=== PATIENT | male | born 1995 | race Two or more races ===

== ENCOUNTER 2021-07-26 14:54 | Emergency (ER) | payer OTHER, SELFPAY ==
--- NOTE | ~2021-07-26 | XR_ITS ---
EXAMINATION: XR FINGER, RIGHT CLINICAL INFORMATION: Question foreign body COMPARISON: None TECHNIQUE: Frontal lateral second finger and AP hand FINDINGS: There is a triangular radiodense object embedded in the soft tissue dorsal to the head of the second proximal phalanx may correlate with the foreign body. No fracture. XR/XR finger RT min 2V IMPRESSION: 2 mm radiodense object embedded in the soft tissue at the level of the dorsal aspect of the head of the proximal phalanx compatible with foreign body. No fracture.
[2021-07-26 16:29] VITALS: BP 123/60; PULSE 74; RESP 18; TEMP 36.6; O2SAT 100
[2021-07-26 16:31] VITALS: BMI 27.2
--- NOTE | 2021-07-26 17:35 | ED_ITS ---
HPI - Wound/Laceration General Chief Complaint: Wound/Laceration Stated Complaint: wc finger lac Time Seen by Provider: 07/26/21 17:35 Source: patient Mode of arrival: ambulatory Limitations: no limitations History of Present Illness HPI narrative: 25-year-old male presents with right index finger laceration with suspected foreign body. Injury occurred while at work trying to replace glass. Tdap updated approximately 3 months ago. Bleeding is controlled at this time. Onset (ago): hour(s) (Within the hour of arrival) Extremity Location: right: hand Place: work Patient tetanus UTD: Yes Context: accidental Associated symptoms: suspect foreign body present and other (Decreased extension) Treatments prior to arrival: bandage Related Data Previous Rx's Medication Instructions Recorded amoxicillin 875 mg-potassium 1 tab PO Q12H 10 Days #20 tab 07/26/21 clavulanate 125 mg tablet (Augmentin) Allergies Allergy/AdvReac Type Severity Reaction Status Date / Time No Known Allergies Allergy Verified 07/26/21 16:30 Review of Systems Review of Systems: Constitutional: No Fever, No Chills ENT/Mouth: No Ear Pain, No Hoarseness, No sore throat Eyes: No Eye Pain, No Swelling, No Redness, No Foreign Body Cardiovascular: No Chest Pain, No SOB Respiratory: No Cough, No Dyspnea Gastrointestinal: No Nausea, No Vomiting, No Diarrhea, No abdominal Pain Genitourinary: No Dysuria, No Hematuria Musculoskeletal: positive right index finger pain, No Myalgias, No Joint Swelling Skin: Positive right index finger laceration, No rash Neuro: No Weakness, No Numbness, No Paresthesias, No Loss of Consciousness, No Dizziness, No Headache Psych: No Anxiety/Panic, No Depression Heme/Lymph: no easy bruising, no Lymphadenopathy Endocrine: No Polyuria, No Polydipsia Yes all other systems are reviewed and are negative [facility] Past Medical History Attestation statement: The following information was validated with the patient. Source: old records reviewed Social History Social History Advance Directives: No Advance Directives Information Provided: No Physical Exam Vital Signs: Vital Signs: Last Vital Signs Temp 97.9 F 07/26/21 16:29 Pulse 74 07/26/21 16:29 Resp 18 07/26/21 16:29 BP 123/60 07/26/21 16:29 Pulse Ox 100 07/26/21 16:29 BMI result Body Mass Index 27.2 Appearance: Alert. Oriented X3. No acute distress. Eyes: Pupils equal, round and reactive to light. ENT: Pharynx normal. Neck: Normal inspection. Neck supple. CVS: Normal heart rate and rhythm. Pulses normal. Respiratory: No respiratory distress. Breath sounds normal. Abdomen: Soft and nontender. Skin: Skin warm and dry. Normal skin color. Normal skin turgor. Extremities: Decreased extension to the right index finger, full flexion, brisk capillary refill, neurovascularly intact. 4 cm irregular laceration over the PIP. Neuro: No motor deficit. No sensory deficit. Cranial nerves 2-12 intact. Course Course Course Narrative: 25-year-old male presents with laceration to the right dorsal aspect of the index finger. X-rays indicate suspected foreign body. Tdap vaccine was updated approximately 3 months ago. Prepped and draped in sterile fashion, irrigated with 2 L of sterile saline, Betadine cleanse. Wound investigated how however was unable to obtain the foreign body on x-ray. Laceration repaired with 5 loose sutures. 6:31 p.m. brisk capillary refill continues, decreased range of motion with extension to the right index finger. Neurovascularly intact. Plan of care is for patient to follow-up with Dr. De La Cruz, hand surgeon. Patient does understand that he must take antibiotics, if he finds indication of infection that he must return immediately as he does have a foreign body. Thank you for choosing this emergency department for evaluation. Please follow-up with primary care physician as needed. Return to the emergency department for any new, concerning, or worsening symptoms. Consultations Consultation #1: Jono Time: 18:27 MDM - Wound/Laceration MDM Narrative Medical decision making narrative: Foreign body Differential Diagnosis Differential diagnosis: Likely laceration Medical Records Attestation: I reviewed the patient's medical records. Imaging Data X-ray finger: Attestation: I personally reviewed and interpreted this imaging study as follows: Radiologist's impression: EXAMINATION: XR FINGER, RIGHT CLINICAL INFORMATION: Question foreign body? COMPARISON: None? TECHNIQUE: Frontal lateral second finger and AP hand FINDINGS: There is a triangular radiodense object embedded in the soft tissue dorsal to the head of the second proximal phalanx may correlate with the foreign body. No fracture. XR/XR finger RT min 2V IMPRESSION: 2 mm radiodense object embedded in the soft tissue at the level of the dorsal aspect of the head of the proximal phalanx compatible with foreign body. ? No fracture. Procedures Laceration Laceration 1: Site: hand Side (If applicable): right Size (cm): 4 Description: flap and irregular Depth: simple, single layer, involves muscle layer and involves tendon Local Anesthetic: lidocaine 2% Amount of anesthesia used (mL): 4 Pre-repair: wound explored and irrigated extensively Skin layer closed with: nylon Size (cm): 4-0 Number of sutures: 5 Technique: simple, interrupted Nerve Block Nerve Block 1: Time out performed: Yes Local Anesthetic: lidocaine 2% Amount of anesthesia used (mL): 4 Side: right Nerve Blocks: digital Procedure Successful: Yes Patient Tolerated Procedure: well and no complications Discharge Plan Discharge Clinical Impression: Laceration, Extensor tendon disruption, Foreign body (FB) in soft tissue Patient Disposition: Home, Self-Care Instructions: Soft Tissue Foreign Body (ED), Finger Laceration (ED), Tendon Laceration (ED) Additional Instructions: You were evaluated for laceration from glass. X-rays indicated foreign body still in the finger, I was unable to remove that. You also have a extensor tendon injury to the right index finger. Please follow-up with Dr. De La Cruz, hand surgeon. Please call the office on Thursday for an appointment. You will most likely require surgery for this injury. Please take Augmentin twice a day for the next 10 days. If you notice any signs or symptoms indicating infection, loss of sensation to the finger, fevers or chills please return to the emergency department immediately for evaluation Thank you for choosing this emergency department for evaluation. Please follow-up with primary care physician as needed. Return to the emergency department for any new, concerning, or worsening symptoms. Prescriptions: New amoxicillin-pot clavulanate [Augmentin] 875-125 mg tablet 1 tab PO Q12H 10 Days Qty: 20 RF: 0 Referrals: Yulisa De La Cruz MD [Physician] - 2 days (Call on Thursday for foreign body and extensor tendon injury to the right index finger) Stand Alone Forms: Work/School Release
[2021-07-26] MEDS: Amoxicillin/Potassium Clav 875 MG TABLET PO (18:50)
== END 2021-07-26 19:08 | disposition home or self-care (01) ==
PROVIDERS: Emergency Provider Emergency Medicine Emergency Medical Services
DX: S61.220A Laceration with foreign body of right index finger without damage to nail, initial encounter (principal); S66.320A Laceration of extensor muscle, fascia and tendon of right index finger at wrist and hand level, initial encounter; W25.XXXA Contact with sharp glass, initial encounter; Y93.89 Activity, other specified; Y92.89 Other specified places as the place of occurrence of the external cause; Y99.0 Civilian activity done for income or pay
CPT/HCPCS: 12042; 73140; 99283; 99284

== ENCOUNTER 2021-07-30 10:54 | Outpatient (REF) | payer OTHER, SELFPAY ==
--- NOTE | ~2021-07-30 | XR_ITS ---
EXAMINATION: XR HAND, RIGHT CLINICAL INFORMATION: Pain in hand. COMPARISON: 07/26/2021 TECHNIQUE: PA, lateral, and oblique views of the right hand. FINDINGS: There is swelling along the radiopalmar side of the second digit centered at the PIP level. The previously seen triangular radiopaque foreign body is no longer seen. There is no soft tissue gas or osseous erosion. No fracture. XR/XR hand RT min 3V IMPRESSION: Soft tissue swelling along the second digit. No visible radiopaque foreign body.
== END 2021-07-30 10:55 | disposition home or self-care (01) ==
LOC: HO.HOSX 10:54
PROVIDERS: Visit Provider Physician Assistant
DX: M79.643 Pain in unspecified hand (principal); S61.220A Laceration with foreign body of right index finger without damage to nail, initial encounter; S66.821A Laceration of other specified muscles, fascia and tendons at wrist and hand level, right hand, initial encounter; S64.490A Injury of digital nerve of right index finger, initial encounter; W25.XXXA Contact with sharp glass, initial encounter; W45.8XXA Other foreign body or object entering through skin, initial encounter; Y93.89 Activity, other specified; Y92.69 Other specified industrial and construction area as the place of occurrence of the external cause; Y99.0 Civilian activity done for income or pay
CPT/HCPCS: 73130

== ENCOUNTER 2021-08-05 09:28 | Day surgery (SDC) | payer OTHER, SELFPAY ==
[2021-08-05] VITALS (7 sets, daily range): BP systolic 101–148; BP diastolic 56–91; PULSE 82–107; RESP 16–18; TEMP 36.2–37.6; O2SAT 97–100; BMI 27.3
--- NOTE | ~2021-08-05 | FL_ITS ---
EXAMINATION: XR FLUOROSCOPY WITH IMAGES CLINICAL INFORMATION: Index finger reconstruction COMPARISON: Radiographs right hand and finger 07/30/2021, 07/26/2021 TECHNIQUE: Fluoroscopy performed by Dr. Yulisa De La Cruz. Fluoroscopy time: 21 seconds. DAP: 9747 uGycm2 Images: 1 FINDINGS: There is likely some focal gas from procedure lateral soft tissue index finger. There is no fracture or dislocation or destructive process. Linear metallic structure is seen adjacent to distal aspect middle phalanx on medial side extending beyond field of view. FL/FL guidance in OR IMPRESSION: Fluoroscopy for orthopedic procedure.
--- NOTE | 2021-08-05 10:58 | HO.ANESPROP2 ---
HPI - Anesthesia Eval Consult details Narrative: 25 M for Index finger reconstruction and foreign body removal right . PMFSH Active Problems Active Problems: All Active Problems (Updated 07/30/21 @ 19:05 by Cynthia Cueva PA-C) Digital nerve laceration, finger (Acute) Laceration of right hand involving extensor tendon (Acute) Foreign body (FB) in soft tissue (Acute) Family History Family history of problems with anesthesia: No Surgical History History of Problems with Anesthesia: Unobtainable (No history of anesthesia ) Social History Social History (Updated 07/30/21 @ 11:09 by Ángel La) Patient Tobacco Use Status: Never used Tobacco Use of substances other than those prescribed or required for medical reasons: Yes Substance Use Frequency: Occasionally Are you DNR?: No Advance Directives: No Advance Directives Information Provided: Yes Current occupational status: employed Current occupation: rt handed Meds Allergies Allergy/AdvReac Type Severity Reaction Status Date / Time No Known Allergies Allergy Verified 07/30/21 11:09 Exam Exam Date and Time: August 05, 2021 1058 Height,Weight and Vital Signs: Height 5 ft 7 in Weight 79.379 kg Last Vital Signs Temp 99.6 F 08/05/21 09:44 Pulse 107 H 08/05/21 09:44 Resp 16 08/05/21 09:44 BP 148/91 H 08/05/21 09:44 Pulse Ox 99 08/05/21 09:44 Airway Mallampati Class: II TM Dist: >3cm Neck ROM: Full Loose/Missing/Broken Teeth: Yes (Chipped front ) Heart: rrr Lungs: bl breath sounds Assessment and Plan Final Anesthetic Review Family History of Problems with Anesthesia: No History of Problems with Anesthesia: Unobtainable (No history of anesthesia ) NPO: Yes ASA Class: I Patient Risk: Intermediate Procedure Risk: Intermediate Anesthetic Plan Anesthetic Plan: GA Disposition: Standard PACU
--- NOTE | 2021-08-05 13:17 | MHC.SHP ---
Pre-Procedural Eval Section A Date of Service: 08/05/21 The patient is an INPATIENT: No Changes since office visit: No Cold of Flu in the past 2 weeks, No New Medical Problems, No Changes in Medication and No Patient answered all questions The History & Physical has been completed within 30 days and I have reviewed it.: Yes Section B Chief Complaint: finger laceration Allergies: Allergies Allergy/AdvReac Type Severity Reaction Status Date / Time No Known Allergies Allergy Verified 07/30/21 11:09 Plan I have reviewed the history and physical and performed a pertinent physical examination on my patient. No changes have occurred unless specified.
--- NOTE | 2021-08-05 13:17 | W.PM.OPN ---
Operative Note Operative Note Date of Service: 08/05/21 Narrative: Operative Note Narrative: Preop diagnosis: 1. Right index finger laceration, possible extensor tendon laceration, possible open PIP joint, possible foreign body, possible radial digital nerve laceration. Postop diagnosis: 1. Right index finger laceration with open PIP joint 2. Right index finger laceration of and the ulnar lateral band. Procedure: 1. Right index finger I&D and I&D of PIP joint 2. Right index finger repair of the extensor digitorum communis tendon central slip, 3. and repair of the ulnar lateral band tendon 4. Right index finger radial digital nerve neurolysis Surgeon: Yulisa De La Cruz MD Anesthesia: General Findings: right index finger dorsal PIP level laceration extended through the central slip of the extensor tendon as well as the ulnar lateral band and into the dorsal aspect of the PIP joint. No foreign body was found, or found on fluoroscopic images. The radial digital nerve was found to be intact. Implants: None Tourniquet time: 51 minutes EBL: 5.0 ml Specimen: none Drains: None Complications: None Disposition: Brought to the recovery room in stable condition Plan: Follow-up in 10-14 days for wound check, suture removal and for placement in a short-arm finger spica cast holding the right index and middle fingers in MCP flexion and PIP extension. Indications: The patient is a [age] year old young man with a laceration to the dorsal aspect of the right index finger at the PIP joint level from a piece of glass From a broken windshield. . The risks and benefits of operative treatment, including but not limited to risk of damage to blood vessels, nerves, tendons, infection, recurrence, persistent pain or numbness, incomplete resolution of preoperative symptoms, or need for further surgery were discussed with the patient and they wished to proceed with surgery. Procedure: Once consent was obtained patient was brought back to the operating suite and placed in the operating table in a supine position. . Perioperative antibiotics and anesthesia was administered by the anesthesia team. A tourniquet was applied to the proximal aspect of the right upper extremity and the limb was prepped and draped in a standard surgical fashion. The limb was elevated exsanguinated with Esmarch bandage and the tourniquet inflated to 250 mm of mercury for a total tourniquet time of 51 minutes. a pair of tenotomy scissors was used to open up the dorsal flap of tissue over the PIP joint of the right index finger. This then allowed us to follow the entrance wound which clearly passed through the central slip of the extensor tendon, also lacerating the ulnar lateral band tendon and extending down into the dorsal aspect of the PIP joint. The radial lateral band was intact. I sharply debrided some devitalized tissue from the dorsal flap tissues using a 15. Blade and iris scissors. I evaluated the wound for a possible piece of glass that was seen on the original radiographic images when he was in the emergency department. No piece of glass was found. Multiple fluoroscopic images were also obtained intraoperatively to look for this piece of glass, but no glass was found. I suspect it was removed or washed out when the wound was washed out in the emergency department. An Angiocath was used to copiously irrigate the PIP joint. Upon inspection of the joint I noted that he had a chondral injury to the dorsal articular cartilage at the distal end of the proximal phalanx. The chondral defect measured approximately 4 mm in length by perhaps 2-3 mm in width and again was located more on the dorsal articular surface pro. The wound was copiously irrigated with normal saline. I then repaired the central slip of the extensor tendon using some 4-0 Ethibond suture. I then repaired the ulnar lateral bands tendon using some 4-0 Ethibond and some 4-0 Prolene suture. I then turned my attention to our neurolysis to further evaluate the radial digital nerve. A Arvind type incision was made over the volar aspect of the proximal and middle phalanxes of the right index finger. I then dissected down to the level of the flexor tendon sheath using tenotomy scissors. I then performed a neurolysis freeing up the soft tissue from about the radial digital nerve both proximal and distal to the PIP joint. This was done using tenotomy and iris scissors. In doing so, it appear the radial digital nerve was in continuity. At this point the tourniquet was deflated and hemostasis obtained with a brief period of local pressure . The Wounds were again copiously irrigated with normal saline. The skin edges were reapproximated with 5-0 nylon suture. a digital block was performed using some 0.5% plain Marcaine for postop pain control. A sterile dressing was applied, as well as a volar splint extending to the fingertips with the MCP joints in flexion and the PIP joints in slight flexion. The patient appears to have tolerated the procedure well and with no complications. All digits were well vascularized conclusion of the case.
== END 2021-08-05 14:10 | disposition home or self-care (01) ==
PROVIDERS: Visit Provider Orthopaedic Surgery
PROC: (CPT 26426; principal; 2021-08-05 11:10)
DX: S61.210A Laceration without foreign body of right index finger without damage to nail, initial encounter (principal); S63.690A Other sprain of right index finger, initial encounter; W25.XXXA Contact with sharp glass, initial encounter; Y93.89 Activity, other specified; Y92.89 Other specified places as the place of occurrence of the external cause; Y99.0 Civilian activity done for income or pay
CPT/HCPCS: 26426; 26418; 64702; 64708; J0690; J1100; J2250; J2370; J2405; J3010

== ENCOUNTER → 2021-08-20 10:00 | Outpatient (BNVA) | payer OTHER, SELFPAY | PROVIDERS: Visit Provider Orthopaedic Surgery | DX: S61.411D Laceration without foreign body of right hand, subsequent encounter (principal); S66.821D Laceration of other specified muscles, fascia and tendons at wrist and hand level, right hand, subsequent encounter | CPT/HCPCS: 99212 ==

== ENCOUNTER → 2021-09-17 11:26 | Outpatient (BNVA) | payer OTHER, SELFPAY | PROVIDERS: Visit Provider Orthopaedic Surgery | DX: S61.411D Laceration without foreign body of right hand, subsequent encounter (principal); S66.821D Laceration of other specified muscles, fascia and tendons at wrist and hand level, right hand, subsequent encounter; M79.5 Residual foreign body in soft tissue | CPT/HCPCS: 99212 ==

== ENCOUNTER 2021-10-17 13:00 | Outpatient (RCR) | payer OTHER, SELFPAY ==
--- NOTE | 2021-10-03 15:07 | MHC.OT.OEV ---
[address] [phone] F: [phone] Occupational Therapy Evaluation Diagnosis: Right hand laceration, post-op I&D w/ EDC central slip and ulnar lateral band repair Date of Onset: 07/26/21 Date of Surgery: 08/05/21 Attending Provider: Dr De La Cruz Prescribed Treatment: Eval and Treat MD Follow Up Appointment: 10/16/21 History of Current Condition: 25 yo male was installing a glass windshield when tool broke and hand slipped across the glass, resulting in right index finger laceration over dorsal PIP. He was seen in ED for right hand laceration and referred to [facility]. He is now post-op I&D w/ EDC central slip and ulnar lateral band repair 08/05/[address] De La Cruz. He has since had cast removed and cleared for OT to progress range and activity. Significant Medical History: None known Precautions/Contraindications: Patient Goals: Get full AROM. 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[employer] Living Situation, Family and/or Social Support: Lives w/ fiance Current Level of Function and Occupation Self Care, Employment, Leisure: Currently out of work, difficulty working w/ auto tools, opening containers Sleep: No issues Driving: WFL, some discomfort w/ stardand transmission Pain Assessment Pain Score: 0 Pain Location and Description: Pain free at rest Soreness/muscle ache w/ heaviner use Aggravating Factors: Gripping, pressure Alleviating Factors: None used Skin and Soft Tissue Assessment Comments: Well healed surgical scar on volar right index PIP and dorsal PIP; digit flexed position of comfort Nerve assessment Ulnar Nerve: WFL Median Nerve: WFL Radial Nerve: WFL Sensory Assessment Comments: Perry Ralph 2.83 B/L index volar and dorsal aspect Pt denies sensory changes index Notes occasional numbness/tingling in right small and ring fingers Edema Assessment Comments: PIP R 7.3 L 6.7 Dexterity Assessment Comments: Functional Dexterity Test R 23 sec L 24 sec AROM(PROM) Strength Cervical Cervical Flexion: Cervical Extension: Cervical Lateral Flexion: Cervical Rotation: Comments: WFL Shoulder Flexion: Extension: Abduction: Internal Rotation: External Rotation: Comments: WFL Flexion: Extension: Abduction: Internal Rotation: External Rotation: Comments: Elbow Flexion: Extension: Pronation: Supination: Comments: WFL Flexion: Extension: Pronation: Supination: Comments: Wrist Flexion: R 60 L 62 Extension: R 60 L 72 Ulnar Deviation: Radial Deviation: Comments: Flexion: Extension: Ulnar Deviation: Radial Deviation: Comments: Thumb Thumb CMC Flexion: Thumb MCP Flexion: Thumb IP Flexion: Radial Abduction: Palmar Abduction: [place] ([place]andji 0-10): Comments: WFL Digits Index MCP: R 0/63 PIP: R 30(16)/78 DIP: R 0/32 Long MCP: PIP: DIP: Ring MCP: PIP: DIP: Small MCP: PIP: DIP: Comments: Soft end range feel w/ passive PIP flex Pt w/ index extensor lag, correctable to 16 degrees and then w/ joint stiffness Gross Grasp: R 85lb L 135lb Lateral Pinch: Two-Point Pinch: Three-Jaw Andry: Comments: Patient Education Primary Language: Serbian 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 Patient demonstrates Patient verbalizes Barriers to Learning: None Readiness for Learning: Accepting Who was educated? Patient Comments: Plan of Care Assessment: 25 yo male about 8 weeks post-op right D2 EDC repair at central slip w/ ulnar lateral band repair and has been cleared for OT to progress passive and active ROM. 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 Currently, pt displays decreased right D2 flexion and extension and decreased right patient consumer marketer strength. Incision well-healed on volar and dorsal D2 PIP, with some adhesions and tightness. Mild edema in the right PIPj. Pt to cont OT services to improve AROM and patient consumer marketer strength, while reducing edema for functional tasks in order to promote best ability to function. STG Duration: 2 weeks Short Term Goals: Ind with HEP Ind with scar management R PIP ext <15 R PIP flex >85 R patient consumer marketer strength > 100lbs LTG Duration: 4 weeks Jail Goals: PIP ext <10 PIP flex >95 R patient consumer marketer strength >120lbs Pt to report ease with opening jars Pt to report ease with using hand tools QuickDASH <15 Frequency and Duration: The patient will be seen 2x/week for 4 weeks Treatment Plan: Therapeutic Exercise Therapeutic Activity Home Exercise Program Splinting Patient Education Desensitization/Sensory Re-ed Edema Control ADL Training Ultrasound Paraffin Fluidotherapy MHP Cold Packs Joint Mobilization Soft Tissue Mobilization Kinesiotaping Electronically Signed By: Nicky Peacock OT/s Reviewed/agree with student documentation: Yes Therapist: Nanda Baird OTR/L CHT Please sign and return to therapist, Thank you for your referral.
--- NOTE | 2021-10-14 13:51 | MHC.OT.OP ---
[address] [phone] F: [phone] Occupational Therapy Progress Note Diagnosis: Right hand laceration, post-op I&D w/ EDC central slip and ulnar lateral band repair Date of Surgery: 08/05/21 Date of Evaluation: 10/03/21 Treatments to Date: 2 No Shows to Date: 2 Subjective: Things are actually getting easier to do Pain Score: 0 Pain Location: right index finger Objective Measures: Right index PIP 14(8)/86 Status: Progressing Assessment: Shine is now 10 weeks post-op central slip and lateral band repair. He missed one week of therapy, but has been doing well w/ HEP. He demos good active extension and slightly less than full active composite flexion. He has mild boutonniere deformity with slight PIP flexion contracture/extensor lag and DIP slight hyperextension/tightness. Overall range improving from initial evaluation, continues to be pain free and has good participation in daily activities. Short Term Goals: Ind with HEP (met) Ind with scar management (met) R PIP ext <15 (met) R PIP flex >85 (met) R media production operator strength > 100lbs Care Home Goals: PIP ext <10 PIP flex >95 R media production operator strength >120lbs Pt to report ease with opening jars Pt to report ease with using hand tools QuickDASH <15 Frequency and Duration: The patient will be seen 2x/week for 2 weeks Treatment Plan: Therapeutic Exercise Therapeutic Activity Home Exercise Program Splinting Patient Education Desensitization/Sensory Re-ed Edema Control ADL Training Ultrasound Paraffin Fluidotherapy MHP Cold Packs Joint Mobilization Soft Tissue Mobilization Kinesiotaping Electronically Signed By: Nicky Peacock OT/s Reviewed/agree with student documentation: Yes Therapist: Nanda Baird, OTR/L CHT
--- NOTE | 2021-10-24 14:23 | MHC.OT.DC ---
[address] [phone] F: [phone] Occupational Therapy Discharge Note Provider: Dr De La Cruz Diagnosis: Right hand laceration, post-op I&D w/ EDC central slip and ulnar lateral band repair Date of Surgery: 08/05/21 Date of Evaluation: 10/03/21 Date of Discharge: 10/24/21 Treatments to Date: 3 No Shows to Date: 4 Discharge Status: Improved Function Independent with HEP Visit Non-compliance Discharge Summary: Shine is now 10 weeks post-op and demos good active extension w/ slight lag. Overall range improving from initial evaluation, continues to be pain free and has good participation in daily activities. Reports he has been wearing compression digi-sleeve at nighttime and LMB extension splint for low load extension stretch. He has missed four therapy visits and at this time requires discharge from therapy services due to attendance policy. He is Ind w/ his home exercise program and has good understanding of edema, pain and scar management techniques, I anticipate full functional return. Electronically Signed By: Nicky Peacock OT/s Reviewed/agree with student documentation: Yes Therapist: Nanda Baird, OTR/L CHT Please Sign and return to therapist, thank you for your referral.
== END 2021-10-24 14:24 | disposition home or self-care (01) ==
LOC: HO.OT 13:00
PROVIDERS: Visit Provider Orthopaedic Surgery
DX: S61.411D Laceration without foreign body of right hand, subsequent encounter (principal); S66.821D Laceration of other specified muscles, fascia and tendons at wrist and hand level, right hand, subsequent encounter
CPT/HCPCS: 29130; 97110; 97140; 97165; 97760

== ENCOUNTER → 2021-10-29 09:37 | Outpatient (BNVA) | payer OTHER, SELFPAY | PROVIDERS: Visit Provider Orthopaedic Surgery | DX: S61.411D Laceration without foreign body of right hand, subsequent encounter (principal); S66.821D Laceration of other specified muscles, fascia and tendons at wrist and hand level, right hand, subsequent encounter | CPT/HCPCS: 99212 ==